=== PATIENT | male | born 1955 ===

== ENCOUNTER → 2024-09-12 | Outpatient (CLI) | payer SELFPAY ==
[2024-09-12 19:42] LABS: BASOPHILS ABSOLUTE AUTO 0.05 K/mm3 (0.00-0.23); BASOPHILS PERCENT AUTO 1 % (0-2); EOSINOPHILS ABSOLUTE AUTO 0.23 K/mm3 (0.00-0.68); EOSINOPHILS PERCENT AUTO 3 % (0-6); Hematocrit 37.4 % (37.0-53.0); Hemoglobin 13.1 g/dL (13.5-17.5); IMMATURE GRAN ABSOLUTE AUTO 0.01 K/mm3 (0.00-0.10); IMMATURE GRAN PERCENT AUTO 0 % (0-1); LYMPHOCYTES ABSOLUTE AUTO 1.88 K/mm3 (0.84-5.20); LYMPHOCYTES PERCENT AUTO 25 % (21-46); MONOCYTES PERCENT AUTO 8 % (4-13); Mean Corpuscular HGB 34.7 pg (26.0-34.0); Mean Corpuscular Volume 99 fL (80-100); Mean Platelet Volume 9.1 fL (9.1-12.4); NEUTROPHILS ABSOLUTE AUTO 4.75 K/mm3 (1.96-9.15); NEUTROPHILS PERCENT AUTO 63 % (41-73); Platelet Count 245 K/mm3 (150-400); RDW Coefficient Variation 12.7 % (11.7-14.2); RDW Standard Deviation 46.5 fL (35.1-46.3); Red Blood Cell Count 3.77 M/mm3 (4.30-5.90); White Blood Cell Count 7.52 K/mm3 (4.00-11.30)
[2024-09-12 20:19] LABS: Very Low Density Lipoprot Chol 18 mg/dL (6-32)
[2024-09-12 20:20] LABS: Alanine Aminotransfer (ALT/SGP 23 U/L (12-78); Albumin, Blood 3.3 g/dL (3.4-5.0); Alk Phos 87 U/L (50-136); Anion Gap 9 mmol/L (3-11); Aspartate Aminotrans (AST/SGOT 13 U/L (12-37); Bilirubin, Total 0.4 mg/dL (0.1-1.0); Blood Urea Nitrogen 16 mg/dL (8-24); Bun/Creatinine Ratio 17.6 (12.0-20.0); CHOL/HDL RATIO 3.2; CO2, Blood 28 mmol/L (21-32); Calcium, Blood 8.9 mg/dL (8.5-10.1); Chloride, Blood 105 mmol/L (98-108); Cholesterol 179 mg/dL (50-200); Creatinine, Blood 0.91 mg/dL (0.60-1.20); Globulin, Blood 3.4 g/dL (2.2-4.0); Glomerular Filtration Rate 90 (60-); Glucose, Blood 108 mg/dL (70-99); HDL Cholesterol 56 mg/dL (>39); LDL/HDL RATIO 1.9; Low Density Lipoprotein Chol 105 mg/dL (0-110); Potassium, Blood 4.3 mmol/L (3.5-5.5); Sodium, Blood 138 mmol/L (136-145); Total Protein, Blood 6.7 g/dL (6.4-8.2); Triglycerides 90 mg/dL (30-160)
== END ==
LOC: LAB SHORT 18:30 → LAB 18:30
PROVIDERS: Family Medicine
DX: Z00.00 Encounter for general adult medical examination without abnormal findings (principal)
CPT/HCPCS: 80053; 80061; 85025

== ENCOUNTER 2024-11-14 12:34 | Day surgery (SDC) | payer OTHER ==
[~2024-11-14] VITALS: Ht 172.7 cm; Wt 71.7 kg
[~2024-11-14 12:34] MED LIST: Balanced Salt Epinephrine Irrigation Solution 500 mL IR SCH; Diazepam 2 MG Tab PO PRN; Lidocaine HCl/Pf 1% 5 ML VIAL XX SCH; Moxifloxacin HCL 0.5 MG/0.1 ML 0.4MLSYR LEFTEYE SCH; Ondansetron 4 MG SoluTab MM PRN; PHENYLEPHRINE\\TROPICAMIDE\\TETRACAINE OPHTHALMIC DILATING SOLN LEFTEYE PRN; Povidone-Iodine 450 DROP/30 ML Solution LEFTEYE SCH; Povidone-Iodine 450 DROP/30 ML Solution ONE; Tetracaine HCl/Pf 0.5% Opth Soln 4 ml ONE; diazePAM 2 MG,diazePAM 5 MG PO SCH
[2024-11-14] MEDS ORDERED: Diazepam 5 MG Tab ONE (12:51)
[2024-11-14] MEDS ORDERED: Diazepam 2 MG Tab ONE (12:51)
--- NOTE | 2024-11-14 14:14 | NUR ---
11/14/24 1414 Ana Sesay D/C INSTRUCTIONS GIVEN TO PT, QUESTIONS ASKED & ANSWERED, UNDERSTANDING VERBALIZED. PT BELONGINGS RETURNED BACK TO PT, INCLUDING CIGARETTES & DRILL PRESS HAND. PT DENIES PAIN/NAUSEA, VSS, ON RA, TOLERATING PO LIQUIDS W/O COMPLAINT. PT LEAVING W/ D/C PACKET & EYE KIT. NO VISIBLE SIGNS OF DISTRESS NOTED.
== END 2024-11-14 14:13 | disposition home or self-care (01) ==
LOC: ORSCSDS 12:34
PROVIDERS: Student in an Organized Health Care Education/Training Program
PROC: 08RK3JZ Replacement of Left Lens with Synthetic Substitute, Percutaneous Approach (ICD-10-PCS; principal; 2024-11-14 14:00)
DX: H25.89 Other age-related cataract (principal); H52.202 Unspecified astigmatism, left eye
CPT/HCPCS: A9270; V2632

== ENCOUNTER 2024-11-27 12:51 | Day surgery (SDC) | payer OTHER ==
[~2024-11-27] VITALS: Ht 175.3 cm; Wt 72.0 kg
[~2024-11-27 12:51] MED LIST changes: -Diazepam 2 MG Tab PO PRN; +Diazepam 5 MG Tab PO PRN; +Diazepam 5 MG Tab PO SCH; +Lidocaine HCl/Pf 1% 5 ML VIAL ONE; -Moxifloxacin HCL 0.5 MG/0.1 ML 0.4MLSYR LEFTEYE SCH; +Moxifloxacin HCL 0.5 MG/0.1 ML 0.4MLSYR RIGHTEYE SCH; -PHENYLEPHRINE\\TROPICAMIDE\\TETRACAINE OPHTHALMIC DILATING SOLN LEFTEYE PRN; +PHENYLEPHRINE\\TROPICAMIDE\\TETRACAINE OPHTHALMIC DILATING SOLN RIGHTEYE PRN; -Povidone-Iodine 450 DROP/30 ML Solution LEFTEYE SCH; +Povidone-Iodine 450 DROP/30 ML Solution RIGHTEYE SCH; -diazePAM 2 MG,diazePAM 5 MG PO SCH
[2024-11-27] MEDS ORDERED: Diazepam 10 MG Tab ONE (13:51)
--- NOTE | 2024-11-27 14:12 | NUR ---
11/27/24 1412 MEHREEN CANO RESTING ON GURNEY, RAILS UP, CALL LIGHT IN REACH.
[2024-11-27] MEDS ORDERED: Ondansetron HCl 2 MG / ML 2ML Vial ONE (14:43)
== END 2024-11-27 15:37 | disposition home or self-care (01) ==
LOC: ORSCSDS 12:51
PROVIDERS: Student in an Organized Health Care Education/Training Program
PROC: 08RJ3JZ Replacement of Right Lens with Synthetic Substitute, Percutaneous Approach (ICD-10-PCS; principal; 2024-11-27 14:30)
DX: H25.11 Age-related nuclear cataract, right eye (principal); Z96.1 Presence of intraocular lens; H52.201 Unspecified astigmatism, right eye; F17.210 Nicotine dependence, cigarettes, uncomplicated
CPT/HCPCS: A9270; J2003; J2405; V2632